=== PATIENT | female | born 1950 | race Caucasian/White ===

== ENCOUNTER → 2017-04-17 | Outpatient (CLI) | payer MEDICARE, OTHER ==
[2017-04-17 14:19] LABS: ABSOLUTE BASOPHILS # (AUTO) 0.1 10^3/uL (0.0-0.2); ABSOLUTE EOSINOPHILS # (AUTO) 0.2 10^3/uL (0.0-0.6); ABSOLUTE LYMPHOCYTES (AUTO) 1.5 10^3/uL (0.5-4.7); ABSOLUTE MONOCYTES (AUTO) 0.6 10^3/uL (0.1-1.4); ABSOLUTE NEUT (AUTO) 2.7 10^3/uL (1.7-8.2); EOSINOPHILS % (AUTO) 3.8 % (0-6); HEMATOCRIT 40.2 % (36.0-47.0); HEMOGLOBIN 13.6 g/dL (12.0-15.5); HGB HCT DIFFERENCE 0.6; LYMPHOCYTES % (AUTO) 29.5 % (13-45); MEAN CORPUSCULAR HEMOGLOBIN 29.8 pg (27.0-33.4); MEAN CORPUSCULAR HGB CONC 33.9 g/dL (32.0-36.0); MEAN CORPUSCULAR VOLUME 88 fl (80-97); MONOCYTES % (AUTO) 12.1 % (3-13); RED BLOOD COUNT 4.56 10^6/uL (3.72-5.28); RED CELL DISTRIBUTION WIDTH 14.4 % (11.5-14.0); SEGMENTED NEUTROPHILS % (AUTO) 53.6 % (42-78)
[2017-04-17 14:32] LABS: ALANINE AMINOTRANSFERASE 25 U/L (9-52); ALBUMIN 4.6 g/dL (3.5-5.0); ALKALINE PHOSPHATASE 67 U/L (38-126); ANION GAP 12 (5-19); ASPARTATE AMINO TRANSFERASE 22 U/L (14-36); BILIRUBIN,DIRECT 0.3 mg/dL (0.0-0.4); BILIRUBIN,TOTAL 0.6 mg/dL (0.2-1.3); BLOOD UREA NITROGEN 11 mg/dL (7-20); CALCIUM 9.7 mg/dL (8.4-10.2); CARBON DIOXIDE 28 mmol/L (22-30); CHLORIDE 102 mmol/L (98-107); CREATININE RESULT 0.85 mg/dL (0.52-1.25); GLUCOSE 91 mg/dL (75-110); POTASSIUM 4.4 mmol/L (3.6-5.0); SODIUM 141.6 mmol/L (137-145); TOTAL PROTEIN 7.7 g/dL (6.3-8.2)
--- NOTE | 2017-04-18 13:00 | EKG REPORT ---
SEVERITY:- ABNORMAL ECG - SINUS RHYTHM PROBABLE LEFT ATRIAL ABNORMALITY ABNORMAL T, CONSIDER ISCHEMIA, ANT-LAT LEADS : Confirmed by: Reynaldo Schaefer 18-Apr-2017 12:59:35
== END ==
LOC: OD 12:55
PROVIDERS: ATTEND Orthopaedic Surgery
DX: I10 Essential (primary) hypertension (principal); Z11.2 Encounter for screening for other bacterial diseases
CPT/HCPCS: 36415; 80053; 85025; 87070; 93005; 93010

== ENCOUNTER → 2017-08-13 | Day surgery (SDC) | payer MEDICARE, OTHER ==
[~2017-08-13] MED LIST: BUPIVACAINE HCL 0.5 % INJ/PF 30 ML SDV ONE; LIDOCAINE 1% INJ-PF (10 MG/ML) 30 ML SDV ONE; METHYLPREDNISOLONE ACETATE INJ 40 MG/1 ML ML ONE
--- NOTE | 2017-08-13 13:49 | RADIOLOGY REPORT (SQ) ---
EXAM DESCRIPTION: INJECT/ASPIR HIP/SHLDR/KNEE; HIP UNILATERAL-1 VIEW; FLUORO/NEEDLE PLACEMENT COMPLETED DATE/TIME: 08/13/2017 1:33 pm REASON FOR STUDY: UNILATERAL PRIMARU OSTEOARTHRITIS, RIGHT HIP M16.11 UNILATERAL PRIMARY OSTEOARTHR ITIS, RIGHT HIP COMPARISON: None. FLUOROSCOPY TIME: 6 seconds. 1 images saved to PACS. LIMITATIONS: None. PROCEDURE: SITE OF INJECTION: Right hip. LOCALIZING CONTRAST TYPE AND DOSE: 1 mL Isovue-300. MEDICATION TYPE AND DOSE: 80 mg Depo-Medrol and 5 mL 0.5% Sensorcaine. Using local anesthesia and sterile technique with fluoroscopic guidance, the needle was advanced into the joint. Iodinated contrast was injected to verify intraarticular placement. This was followed by therapeutic injection of the indicated medications. The needle was removed. There were no immediat e complications. Preprocedure pain level: 8/10. Postprocedure pain level: 0/10. IMPRESSION: THERAPEUTIC INJECTION OF THE RIGHT HIP JOINT ABOVE. COMMENT: Patient medication list reviewed: Yes- Quality ID# [id number]:Eligible professional attests to doc umenting in the medical record they obtained, updated, or reviewed the patient's current medications. . Quality ID 145: Final reports for procedures using fluoroscopy that document radiation exposure anabel jakob, or exposure time and number of fluorographic images (if radiation exposure indices are not avail able) TECHNICAL DOCUMENTATION: JOB ID: [id number] [employer]- All Rights Reserved
== END ==
LOC: RAD 12:50
PROVIDERS: ATTEND Orthopaedic Surgery
PROC: 3E0U33Z Introduction of Anti-inflammatory into Joints, Percutaneous Approach (ICD-10-PCS; principal; 2017-08-13)
DX: M16.11 Unilateral primary osteoarthritis, right hip (principal)
CPT/HCPCS: 73501; 20610; 77002; J3490; J1020

== ENCOUNTER → 2018-04-02 | Day surgery (SDC) | payer MEDICARE, OTHER ==
--- NOTE | 2018-04-02 14:52 | RADIOLOGY REPORT (SQ) ---
EXAM DESCRIPTION: INJECT/ASPIR HIP/SHLDR/KNEE; FLUORO/NEEDLE PLACEMENT COMPLETED DATE/TIME: 04/02/2018 2:27 pm REASON FOR STUDY: PAIN IN RIGHT HIP M25.551 M25.551 PAIN IN RIGHT HIP COMPARISON: None. FLUOROSCOPY TIME: 18 seconds. 1 images saved to PACS. LIMITATIONS: None. PROCEDURE: SITE OF INJECTION: Right hip. LOCALIZING CONTRAST TYPE AND DOSE: 1 mL Isovue 300. MEDICATION TYPE AND DOSE: 80 mg Depo-Medrol and 5 mL Sensorcaine. Using local anesthesia and sterile technique with fluoroscopic guidance, the needle was advanced into the joint. Iodinated contrast was injected to verify intraarticular placement. This was followed by therapeutic injection of the indicated medications. The needle was removed. There were no immediat e complications. Preprocedure pain level: 5/5. Postprocedure pain level: 0/5. IMPRESSION: THERAPEUTIC INJECTION OF THE RIGHT HIP JOINT ABOVE. COMMENT: Patient medication list reviewed: Yes- Quality ID# [id number]:Eligible professional attests to doc umenting in the medical record they obtained, updated, or reviewed the patient's current medications. . Quality ID 145: Final reports for procedures using fluoroscopy that document radiation exposure anabel jakob, or exposure time and number of fluorographic images (if radiation exposure indices are not avail able) TECHNICAL DOCUMENTATION: JOB ID: [id number] [employer]- All Rights Reserved Reading location - IP/workstation name: [email or web address]
--- NOTE | 2018-04-02 14:52 | RADIOLOGY REPORT (SQ) ---
EXAM DESCRIPTION: INJECT/ASPIR HIP/SHLDR/KNEE; FLUORO/NEEDLE PLACEMENT COMPLETED DATE/TIME: 04/02/2018 2:27 pm REASON FOR STUDY: PAIN IN RIGHT HIP M25.551 M25.551 PAIN IN RIGHT HIP COMPARISON: None. FLUOROSCOPY TIME: 18 seconds. 1 images saved to PACS. LIMITATIONS: None. PROCEDURE: SITE OF INJECTION: Right hip. LOCALIZING CONTRAST TYPE AND DOSE: 1 mL Isovue 300. MEDICATION TYPE AND DOSE: 80 mg Depo-Medrol and 5 mL Sensorcaine. Using local anesthesia and sterile technique with fluoroscopic guidance, the needle was advanced into the joint. Iodinated contrast was injected to verify intraarticular placement. This was followed by therapeutic injection of the indicated medications. The needle was removed. There were no immediat e complications. Preprocedure pain level: 5/5. Postprocedure pain level: 0/5. IMPRESSION: THERAPEUTIC INJECTION OF THE RIGHT HIP JOINT ABOVE. COMMENT: Patient medication list reviewed: Yes- Quality ID# [id number]:Eligible professional attests to doc umenting in the medical record they obtained, updated, or reviewed the patient's current medications. . Quality ID 145: Final reports for procedures using fluoroscopy that document radiation exposure anabel jakob, or exposure time and number of fluorographic images (if radiation exposure indices are not avail able) TECHNICAL DOCUMENTATION: JOB ID: [id number] [email or web address]- All Rights Reserved Reading location - IP/workstation name: [email or web address]
== END ==
LOC: RAD 13:13
PROVIDERS: ATTEND Orthopaedic Surgery
DX: M25.551 Pain in right hip (principal)
CPT/HCPCS: 20610; 77002; J3490 ×2; J1020